=== PATIENT | female | born 1930 | race Caucasian/White ===

== ENCOUNTER 2018-07-10 11:48 | Inpatient (IN) | payer OTHER ==
--- NOTE | 2018-07-10 13:14 | ER ---
Nurse's Notes [facility] Name: Christel Marmolejo Age: 87 yrs Sex: Female : 1930 Arrival Date: 07/10/2018 Time: 11:52 Bed 23 Private MD: Cali Yadav R Diagnosis: Fall due to bumping against object;Displaced fracture of base of neck of left femur Presentation: 07/10 11:56 Presenting complaint: Patient states: Fell from standing at 1100 this AM onto ceramic aj tile. Patient reports left elbow, left hip, and left knee pain. Care prior to arrival: None. Mechanism of Injury: Fall from standing position. Trauma event details: Injury occurred in the [facility], Injury occurred: at home. Injury occurred: July 10, 2018 Injury occurred at: 11:00. 11:56 Acuity: CARRI 3 aj 11:56 Method Of Arrival: Wheelchair aj 12:00 Transition of care: patient was not received from another setting of care. Onset of aj symptoms was July 10, 2018. Risk Assessment: Do you want to hurt yourself or someone else? Patient reports no desire to harm self or others. Initial Sepsis Screen: Does the patient meet any 2 criteria? No. Patient's initial sepsis screen is negative. Does the patient have a suspected source of infection? No. Patient's initial sepsis screen is negative. Trauma Activation: Alert Physician: ED Physician; Name: ; Notified At: ; Arrived At: Physician: General Surgeon; Name: ; Notified At: ; Arrived At: Physician: Radiology; Name: ; Notified At: ; Arrived At: Physician: Respiratory; Name: ; Notified At: ; Arrived At: Physician: Lab; Name: ; Notified At: ; Arrived At: Historical: - Allergies: 12:00 NKA; aj - Home Meds: 12:00 aspirin 81 mg Oral TbEC 1 tab once daily [Active]; Entresto 24-26 mg Oral tab twice a aj day [Active]; furosemide 40 mg Oral tab 1 tab once daily [Active]; potassium chloride 10 mEq Oral cpER 1 cap once daily [Active]; - PMHx: 12:00 breast cancer; HEART FAILURE; Hepatitis; Pacemaker; Parkinsons; aj - PSHx: 12:00 Tonsillectomy; Mastectomy, Right; Appendectomy; mitral valve repair; pacemaker; aj defibrillator; - Immunization history: Last tetanus immunization: unknown. - Social history:: Smoking status: Patient/guardian denies using tobacco. - Ebola Screening: : Patient negative for fever greater than or equal to 101.5 degrees Fahrenheit, and additional compatible Ebola Virus Disease symptoms Patient denies exposure to infectious person Patient denies travel to an Ebola-affected area in the 21 days before illness onset No symptoms or risks identified at this time. Screenin:36 Abuse screen: Denies threats or abuse. Denies injuries from another. Nutritional ss screening: No deficits noted. Tuberculosis screening: Never had TB. Fall Risk None identified. Primary Survey: 11:56 Breathing/Chest: Respiratory pattern: regular, no respiratory pattern noted, aj Respiratory effort: spontaneous, unlabored, Breath sounds: clear, Chest inspection: symmetrical rise and fall of the chest. Circulation: Skin color: pink, Skin temperature: warm, dry. Disability Alert. Assessment: 11:56 General: Appears in no apparent distress. comfortable, Behavior is calm, cooperative, aj appropriate for age. Pain: Complains of pain in left hip, left elbow and left knee. Neuro: Level of Consciousness is awake, alert, obeys commands, Oriented to person, place, time, situation, Appropriate for age. Respiratory: Airway is patent Respiratory effort is even, unlabored, Respiratory pattern is regular, symmetrical. Derm: Skin is intact, is healthy with good turgor, Skin is pink, warm \T\ dry. normal. Musculoskeletal: Reports pain in left hip, left elbow and left knee. 13:00 Reassessment: Patient and/or family updated on plan of care and expected duration. Pain tl3 level reassessed. Patient is alert, oriented x 3, equal unlabored respirations, skin warm/dry/pink. xray at bedside. 14:39 Reassessment: Patient appears in no apparent distress at this time. No changes from tl3 previously documented assessment. Patient and/or family updated on plan of care and expected duration. Pain level reassessed. Patient is alert, oriented x 3, equal unlabored respirations, skin warm/dry/pink. pt does not want pain medicine at this time. 14:39 Reassessment: ECHO being done at bedside. tl3 16:28 Reassessment: Patient appears in no apparent distress at this time. No changes from tl3 previously documented assessment. Patient and/or family updated on plan of care and expected duration. Pain level reassessed. Patient is alert, oriented x 3, equal unlabored respirations, skin warm/dry/pink. being transferred to bed 202. Vital Signs: 11:56 BP 136 / 78; Pulse 87; Resp 20; Temp 97.3; Pulse Ox 99% on R/A; Weight 48.53 kg; Height aj 5 ft. 2 in. (157.48 cm); 13:00 BP 155 / 71; Pulse 77; Resp 18; Pulse Ox 100% on R/A; tl3 16:28 BP 126 / 64; Pulse 86; Resp 18; Pulse Ox 97% on R/A; tl3 11:56 Body Mass Index 19.57 (48.53 kg, 157.48 cm) aj Irene Coma Score: 11:56 Eye Response: spontaneous(4). Verbal Response: oriented(5). Motor Response: obeys aj commands(6). Total: 15. Trauma Score (Adult): 11:56 Eye Response: spontaneous(1); Verbal Response: oriented(1); Motor Response: obeys aj commands(2); Systolic BP: > 89 mm Hg(4); Respiratory Rate: 10 to 29 per min(4); Redkey Score: 15; Trauma Score: 12 ED Course: 11:52 Patient arrived in ED. mr 11:52 Cali Yadav MD is Private Physician. mr 11:57 Triage completed. aj 12:00 Arm band placed on left wrist. Patient placed in an exam room. aj 12:03 Ric Duarte MD is Attending Physician. devendra 12:36 Tamia Norris, DAKOTAH is Primary Nurse. ss 12:36 Patient has correct armband on for positive identification. Bed in low position. Call ss light in reach. Pulse ox on. NIBP on. 12:36 Patient maintains SpO2 saturation greater than 95% on room air. ss 13:00 No provider procedures requiring assistance completed. tl3 13:12 Cali Yadav MD is Hospitalizing Provider. devendra 13:13 Ortho called and connected Dr. Rojas with ED doc for patient consulation. eb 13:17 Private physician called and connected Dr. Yadav with ED doc for patient consulation. eb 13:21 X-ray completed. Portable x-ray completed in exam room. Patient tolerated procedure ml well. 13:22 XRAY Hip LEFT 2 view In Process Unspecified. EDMS 13:22 XRAY Knee LEFT 3 view In Process Unspecified. EDMS 13:22 XRAY Elbow LEFT 3 view In Process Unspecified. EDMS 13:43 EKG done, by agriculture laboratory technician. reviewed by Ric Duarte MD. sm3 14:00 Rushing cath inserted, using sterile technique, 16 Fr., by oh, balloon inflated, to tl3 gravity drainage, urine specimen collected. returned clear yellow urine. Patient tolerated well. 14:38 Inserted saline lock: 22 gauge in left forearm, using aseptic technique. Blood tl3 collected. 14:41 Urine Dipstick--Ancillary (enter results) Sent. tl3 14:41 Echo w/ Doppler Sent. tl3 14:42 XRAY Chest (1 view) Sent. tl3 16:28 Patient admitted, IV remains in place. tl3 Administered Medications: 14:41 Drug: NS 0.9% 1000 ml Route: IV; Rate: 125 ml/hr; Site: left forearm; Delivery: Primary tl3 tubing; 16:34 Follow up: IV Status: Completed infusion; IV Intake: 500ml tl3 Intake: 16:34 IV: 500ml; Total: 500ml. tl3 Outcome: 13:13 Decision to Hospitalize by Provider. [facility] 16:28 Admitted to Med/surg accompanied by [facility], via stretcher, with chart, Report called to tl3 DAKOTAH Díaz 16:28 Condition: stable 16:28 Instructed on the need for admit, Demonstrated understanding of instructions. 16:34 Patient left the ED. tl3 Signatures: Dispatcher [employer] Christie Leyva, RN Ric Gonsalves MD MD cha Rivera, Indu mr Gideon, Tamia Dc RN RN ss Lowrey, Tammy, RN RN tl3 Adriana Dixon Shakira [facility]
--- NOTE | 2018-07-10 13:14 | EDPHYS ---
Physician Documentation [facility] Name: Christel Marmolejo Age: 87 yrs Sex: Female : 1930 Arrival Date: 07/10/2018 Time: 11:52 Bed 23 Private MD: Cali Yadav R ED Physician Ric Duarte HPI: 07/10 13:09 This 87 yrs old Female presents to ER via Wheelchair with complaints of Fall devendra Injury. 13:09 Details of fall: The patient fell from an upright position, while walking. Onset: The devendra symptoms/episode began/occurred just prior to arrival. Associated injuries: The patient sustained left arm, decreased range of motion, painful injury, left hip, left inner thigh and left upper thigh, decreased range of motion, painful injury. Historical: - Allergies: 12:00 NKA; aj - Home Meds: 12:00 aspirin 81 mg Oral TbEC 1 tab once daily [Active]; Entresto 24-26 mg Oral tab twice a aj day [Active]; furosemide 40 mg Oral tab 1 tab once daily [Active]; potassium chloride 10 mEq Oral cpER 1 cap once daily [Active]; - PMHx: 12:00 breast cancer; HEART FAILURE; Hepatitis; Pacemaker; Parkinsons; aj - PSHx: 12:00 Tonsillectomy; Mastectomy, Right; Appendectomy; mitral valve repair; pacemaker; aj defibrillator; - Immunization history: Last tetanus immunization: unknown. - Social history:: Smoking status: Patient/guardian denies using tobacco. - Ebola Screening: : Patient negative for fever greater than or equal to 101.5 degrees Fahrenheit, and additional compatible Ebola Virus Disease symptoms Patient denies exposure to infectious person Patient denies travel to an Ebola-affected area in the 21 days before illness onset No symptoms or risks identified at this time. ROS: 13:09 Constitutional: Negative for fever, chills, and weight loss, Eyes: Negative for injury, devendra pain, redness, and discharge, ENT: Negative for injury, pain, and discharge, Neck: Negative for injury, pain, and swelling, Cardiovascular: Negative for chest pain, palpitations, and edema, Respiratory: Negative for shortness of breath, cough, wheezing, and pleuritic chest pain, Abdomen/GI: Negative for abdominal pain, nausea, vomiting, diarrhea, and constipation, Back: Negative for injury and pain, : Negative for injury, bleeding, discharge, and swelling, Skin: Negative for injury, rash, and discoloration, Neuro: Negative for headache, weakness, numbness, tingling, and seizure, Psych: Negative for depression, anxiety, suicide ideation, homicidal ideation, and hallucinations, Allergy/Immunology: Negative for hives, rash, and allergies, Endocrine: Negative for neck swelling, polydipsia, polyuria, polyphagia, and marked weight changes, Hematologic/Lymphatic: Negative for swollen nodes, abnormal bleeding, and unusual bruising. 13:09 MS/extremity: Positive for decreased range of motion, pain, swelling, tenderness, of the left arm and left leg. Exam: 13:09 Constitutional: This is a well developed, well nourished patient who is awake, alert, devendra and in no acute distress. Head/Face: Normocephalic, atraumatic. Eyes: Pupils equal round and reactive to light, extra-ocular motions intact. Lids and lashes normal. Conjunctiva and sclera are non-icteric and not injected. Cornea within normal limits. Periorbital areas with no swelling, redness, or edema. ENT: Nares patent. No nasal discharge, no septal abnormalities noted. Tympanic membranes are normal and external auditory canals are clear. Oropharynx with no redness, swelling, or masses, exudates, or evidence of obstruction, uvula midline. Mucous membranes moist. Neck: Trachea midline, no thyromegaly or masses palpated, and no cervical lymphadenopathy. Supple, full range of motion without nuchal rigidity, or vertebral point tenderness. No Meningismus. Chest/axilla: Normal chest wall appearance and motion. Nontender with no deformity. No lesions are appreciated. Cardiovascular: Regular rate and rhythm with a normal S1 and S2. No gallops, murmurs, or rubs. Normal PMI, no JVD. No pulse deficits. Respiratory: Lungs have equal breath sounds bilaterally, clear to auscultation and percussion. No rales, rhonchi or wheezes noted. No increased work of breathing, no retractions or nasal flaring. Abdomen/GI: Soft, non-tender, with normal bowel sounds. No distension or tympany. No guarding or rebound. No evidence of tenderness throughout. Back: No spinal tenderness. No costovertebral tenderness. Full range of motion. Female : Normal external genitalia. Skin: Warm, dry with normal turgor. Normal color with no rashes, no lesions, and no evidence of cellulitis. Neuro: Awake and alert, GCS 15, oriented to person, place, time, and situation. Cranial nerves II-XII grossly intact. Motor strength 5/5 in all extremities. Sensory grossly intact. Cerebellar exam normal. Normal gait. Psych: Awake, alert, with orientation to person, place and time. Behavior, mood, and affect are within normal limits. 13:09 Musculoskeletal/extremity: ROM: limited active range of motion, limited passive range of motion, Circulation is intact in all extremities. Sensation intact. Compartment Syndrome exam of affected extremity: is normal. DVT Exam: no swelling, negative Homans' sign noted on exam, no appreciated bluish discoloration, no erythema, no increased warmth, pain, tenderness. Vital Signs: 11:56 BP 136 / 78; Pulse 87; Resp 20; Temp 97.3; Pulse Ox 99% on R/A; Weight 48.53 kg; Height aj 5 ft. 2 in. (157.48 cm); 13:00 BP 155 / 71; Pulse 77; Resp 18; Pulse Ox 100% on R/A; tl3 16:28 BP 126 / 64; Pulse 86; Resp 18; Pulse Ox 97% on R/A; tl3 11:56 Body Mass Index 19.57 (48.53 kg, 157.48 cm) Pep Coma Score: 11:56 Eye Response: spontaneous(4). Verbal Response: oriented(5). Motor Response: obeys aj commands(6). Total: 15. Trauma Score (Adult): 11:56 Eye Response: spontaneous(1); Verbal Response: oriented(1); Motor Response: obeys aj commands(2); Systolic BP: > 89 mm Hg(4); Respiratory Rate: 10 to 29 per min(4); Pep Score: 15; Trauma Score: 12 MDM: 12:03 Patient medically screened. [facility] 13:11 Data reviewed: vital signs, nurses notes, lab test result(s), EKG, radiologic studies, devendra plain films. 07/10 13:09 Order name: Basic Metabolic Panel; Complete Time: 16:15 [facility] 07/10 13:09 Order name: CBC with Diff; Complete Time: 16:15 [facility] 07/10 13:09 Order name: LFT's; Complete Time: 16:15 [facility] 07/10 13:09 Order name: Magnesium; Complete Time: 16:15 [facility] 07/10 13:09 Order name: NT PRO-BNP; Complete Time: 16:15 [facility] 07/10 13:09 Order name: PT-INR; Complete Time: 16:15 [facility] 07/10 13:09 Order name: Troponin (emerg Dept Use Only); Complete Time: 16:15 [facility] 07/10 13:09 Order name: Lipase; Complete Time: 16:15 [facility] 07/10 13:09 Order name: Urine Culture [facility] 07/10 13:22 Order name: Basic Metabolic Panel [facility] 07/10 13:22 Order name: Basic Metabolic Panel [facility] 07/10 13:23 Order name: CBC with Automated Diff [facility] 07/10 13:23 Order name: CBC with Automated Diff [facility] 07/10 14:36 Order name: Urine Dipstick--Ancillary (enter results) 07/10 12:10 Order name: XRAY Hip LEFT 2 view; Complete Time: 14:08 07/10 12:10 Order name: XRAY Knee LEFT 3 view; Complete Time: 14:08 07/10 12:10 Order name: XRAY Elbow LEFT 3 view; Complete Time: 14:08 07/10 13:09 Order name: XRAY Chest (1 view) [facility] 07/10 13:09 Order name: EKG; Complete Time: 13:10 [facility] 07/10 13:09 Order name: Pelvis XRAY [facility] 07/10 13:22 Order name: CONS Physician Consult [facility] 07/10 13:22 Order name: CONS Physician Consult; Complete Time: 14:41 [facility] 07/10 13:22 Order name: NPO [facility] 07/10 13:51 Order name: RAD; Complete Time: 14:08 [facility] 07/10 14:06 Order name: RAD; Complete Time: 14:08 [facility] 07/10 14:09 Order name: Echo w/ Doppler [facility] 07/10 14:57 Order name: Urine Dipstick-Ancillary; Complete Time: 16:15 [facility] 07/10 13:09 Order name: Cardiac monitoring; Complete Time: 14:42 [facility] 07/10 13:09 Order name: EKG - Nurse/Tech; Complete Time: 14:42 [facility] 07/10 13:09 Order name: IV Saline Lock; Complete Time: 14:42 [facility] 07/10 13:09 Order name: Labs collected and sent; Complete Time: 14:42 [facility] 07/10 13:09 Order name: O2 Per Protocol; Complete Time: 14:42 [facility] 07/10 13:09 Order name: O2 Sat Monitoring; Complete Time: 14:43 [facility] 07/10 13:09 Order name: Urine Dipstick-Ancillary (obtain specimen); Complete Time: 14:42 [facility] 07/10 13:09 Order name: Rushing; Complete Time: 14:42 [facility] Administered Medications: 14:41 Drug: NS 0.9% 1000 ml Route: IV; Rate: 125 ml/hr; Site: left forearm; Delivery: Primary tl3 tubing; 16:34 Follow up: IV Status: Completed infusion; IV Intake: 500ml tl3 Disposition: 07/10/18 13:13 Hospitalization ordered by Cali Yadav for Inpatient Admission. Preliminary diagnosis are Fall due to bumping against object, Displaced fracture of base of neck of left femur. - Bed requested for Telemetry/MedSurg (Inpatient). - Status is Inpatient Admission. tl3 - Condition is Stable. - Problem is new. - Symptoms have improved. UTI on Admission? No Signatures: Dispatcher [employer] EDMS Christie Chaudhry RN Ric Gonsalves MD MD cha Lowrey, Tammy, RN RN tl3 Adriana Dixon Corrections: (The following items were deleted from the chart) 14:25 13:13 Hospitalization Ordered by Cali Yadav MD for Inpatient Admission. Preliminary eb diagnosis is Fall due to bumping against object; Displaced fracture of base of neck of left femur. Bed requested for Telemetry/MedSurg (Inpatient). Status is Inpatient Admission. Condition is Stable. Problem is new. Symptoms have improved. UTI on Admission? No. devendra 14:26 14:25 07/10/2018 13:13 Hospitalization Ordered by Cali Yadav MD for Inpatient eb Admission. Preliminary diagnosis is Fall due to bumping against object; Displaced fracture of base of neck of left femur. Bed requested for Telemetry/MedSurg (Inpatient). Status is Inpatient Admission. Condition is Stable. Problem is new. Symptoms have improved. UTI on Admission? No. eb 16:34 14:26 07/10/2018 13:13 Hospitalization Ordered by Cali Yadav MD for Inpatient tl3 Admission. Preliminary diagnosis is Fall due to bumping against object; Displaced fracture of base of neck of left femur. Bed requested for Telemetry/MedSurg (Inpatient). Status is Inpatient Admission. Condition is Stable. Problem is new. Symptoms have improved. UTI on Admission? No. eb
[2018-07-10] MEDS ORDERED: ACETAMINOPHEN 500 MG TAB PO PRN (13:18)
[2018-07-10] MEDS ORDERED: ONDANSETRON 4 MG/2 ML VIAL IV PRN (13:18)
--- NOTE | 2018-07-10 13:29 | RAD REPORT ---
EXAM DESCRIPTION: RAD - Elbow Left 3 View - 07/10/2018 1:21 pm CLINICAL HISTORY: Left elbow pain status post fall FINDINGS: The bones are osteoporotic. No fracture or dislocation is seen. However, a joint effusion is present. In the setting of trauma this usually indicates an occult fract ure. The radial head is the most common site
--- NOTE | 2018-07-10 13:40 | RAD REPORT ---
EXAM DESCRIPTION: RAD - Knee Left 3 View - 07/10/2018 1:21 pm CLINICAL HISTORY: Left knee pain status post injury FINDINGS: No fracture or dislocation is seen. The bones are osteoporotic
[2018-07-10] MEDS ORDERED: FENTANYL CITR 100 MCG/2 ML ONE (13:43)
--- NOTE | 2018-07-10 13:51 | RAD REPORT ---
EXAM DESCRIPTION: RAD - Hip Left 2 View - 07/10/2018 1:21 pm CLINICAL HISTORY: Left hip pain status post fall FINDINGS: Subcapital impacted mildly to moderately displaced fracture involves the proximal left fem ur. No dislocation seen. Bones are osteoporotic
--- NOTE | 2018-07-10 13:52 | RAD REPORT ---
EXAM DESCRIPTION: RAD - Pelvis - 07/10/2018 1:47 pm CLINICAL HISTORY: Pelvic pain status post fall FINDINGS: Subcapital impacted mildly to moderately displaced fracture involves the proximal left fem ur. No dislocation seen. Bones are osteoporotic
[2018-07-10] MEDS ORDERED: NA CHLORIDE 0.9% 1,000 ML IV SCH (14:00)
--- NOTE | 2018-07-10 14:04 | RAD REPORT ---
EXAM DESCRIPTION: Fabio Single View07/10/2018 1:47 pm CLINICAL HISTORY: Hypertension COMPARISON: 2010 FINDINGS: The lungs appear clear of acute infiltrate. Chronic appearing pleural and pulmonary paren chymal opacities noted. The heart is mildly enlarged. Pacemaker leads are in place. Post surgical changes involve the chest IMPRESSION: No acute abnormalities displayed
[2018-07-10 14:54] LABS: Absolute Lymphocytes (CBC) 0.4 K/uL (0.7-4.9); Absolute Monocytes 0.2 K/uL (0.1-1.3); Absolute Neutrophil 7.2 K/uL (1.8-8.0); Basophils % 0.3 % (0-1.3); Hematocrit 33.4 % (36.0-45.0); Lymphocytes % 4.5 % (15.3-44.8); MCH 28.9 pg (27.0-35.0); MCV 85.1 fL (80-100); MPV 9.2 fL (7.6-11.3); Monocytes % 2.7 % (3.3-12.3); RBC Red Blood Cell Count 3.93 M/uL (3.86-4.86)
[2018-07-10 14:56] LABS: Urine Specific Gravity 1.015 (1.005-1.030)
[2018-07-10 14:57] LABS: Protime INR 0.97
[2018-07-10 14:57] LABS: Urine Blood TRACE (NEG); Urine Glucose NEGATIVE (NEG); Urine Protein NEGATIVE (NEG); Urine pH 5.5 (5.0-7.0)
[2018-07-10 15:14] LABS: Albumin 3.6 g/dL (3.4-5.0); Bilirubin Direct 0.1 mg/dL (0-0.2); Bilirubin Total 0.4 mg/dL (0.2-1.0); Magnesium 2.4 mg/dL (1.8-2.4); Protein, Total 6.8 g/dL (6.4-8.2); Troponin (Emerg Dept Use Only) 0.03 ng/mL (0.0-0.045)
--- NOTE | 2018-07-10 18:46 | EKG ---
Test Date: 2018-07-10 Test Time: 13:34:01 Check Out Clerk: TYSHAWN MEASUREMENT RESULTS: Intervals: Rate: 88 WY: 202 QRSD: 92 QT: 400 QTc: 484 [place]: P: 87 W[place]: 202 QRS: -39 T: 85 INTERPRETIVE STATEMENTS: Electronic ventricular pacemaker Compared to ECG 04/06/2017 07:02:06 No significant changes Electronically Signed On 07-10-18 18:44:47 CUSTOMER SOLUTIONS COORDINATOR by Jordi López
[2018-07-11] MEDS: MORPHINE 2 MG/ML SYR IV PRN ×2 (00:30→04:07)
[2018-07-11 05:32] LABS: Absolute Lymphocytes (CBC) 0.3 K/uL (0.7-4.9); Absolute Monocytes 0.3 K/uL (0.1-1.3); Absolute Neutrophil 5.5 K/uL (1.8-8.0); Basophils % 0.5 % (0-1.3); Eosinophils % 1.5 % (0-4.4); Hematocrit 29.6 % (36.0-45.0); Lymphocytes % 5.3 % (15.3-44.8); MCH 29.1 pg (27.0-35.0); MCV 84.9 fL (80-100); MPV 8.9 fL (7.6-11.3); Monocytes % 4.6 % (3.3-12.3); RBC Red Blood Cell Count 3.49 M/uL (3.86-4.86)
[2018-07-11 05:41] LABS: Potassium 4.1 mmol/L (3.5-5.1)
--- NOTE | 2018-07-11 07:28 | CON ---
Date of Consultation: 07/10/2018 History Of Present Illness: This is my first time seeing this patient to my knowledge, although she does seem a little familiar to me. She is an 87-year-old female who unfortunately today fell onto a tile floor injuring her left hip as well as her left elbow. Physical Examination: On physical examination, she complains of pain with manipulation of her left lower extremity in the r egion of the hip. She may have some very mild knee pain, however not that significant. She is also complaining of some left elbow pain. However, there is no obvious effusion of the elbow or bruising of the elbow. Range of motion of the elbow does cause some mild pain. X-rays were reviewed which re vealed perhaps some slight swelling of the elbow. There is a possibility of an occult fracture of e radial head. However, this is definitely not , although present, is not high. She also has a left impacted slightly varus femoral neck fracture. Assessment And Plan: Assessment at this time is an 87-year-old female, now with left elbow pain, pos sible nondisplaced radial head fracture which is not obvious, as well as a left femoral neck fracture . Risks, benefits, and alternatives to different methods of treating this had been discussed with [facility] patient and the family. They state that they understand things as presented. At this time, she wi ll be admitted in the care of Medicine, most likely with a cardiac consult. After cardiac clearance is performed, we will move forward with a left bipolar hemiarthroplasty. All of her questions as wel l as those of her family had otherwise been answered. SANTA Voice ID: [id number] Report ID: [id number]
[2018-07-11] MEDS ORDERED: DOBUTAMINE 250 MG/250 ML BAG IV PRN ×2 (07:35→13:41)
[2018-07-11] MEDS ORDERED: EPINEPHrine 4 MG in NA CHLORIDE 0.9% 250 ML IV PRN (07:37)
[2018-07-11] MEDS ORDERED: DOPAMINE/D5W 400 MG/250 ML BAG IV SCH (07:45)
[2018-07-11] MEDS ORDERED: TRANEXAMIC ACID 1,000 MG in NA CHLORIDE 0.9% 50 ML IV ONE (08:00)
[2018-07-11] MEDS ORDERED: PROPOFOL 200 MG/20 ML VIAL IV ONE (08:56)
[2018-07-11] MEDS ORDERED: ROCURONIUM 50 MG/5 ML VIAL IV ONE (08:56)
[2018-07-11] MEDS ORDERED: Phenylephrine HCl 10 MG/ML 1 ML VIAL ONE (08:58)
[2018-07-11] MEDS ORDERED: MIDAZOLAM HCL 2 MG/2 ML INJ ONE (09:02)
[2018-07-11] MEDS ORDERED: CEFAZOLIN/SWI 1gm 2 GM/20 ML SYR ONE (09:12)
[2018-07-11] MEDS ORDERED: Ringers Lactate 1,000 ML IV ONE (09:12)
[2018-07-11] MEDS ORDERED: GLYCOPYRROLATE 0.2 MG/ML SYR ONE ×2 (09:54→10:55)
[2018-07-11] MEDS ORDERED: FENTANYL CITR 100 MCG/2 ML ONE (10:10)
[2018-07-11] MEDS ORDERED: ONDANSETRON HCL 40 MG/20 ML VIAL ONE (10:22)
[2018-07-11] MEDS ORDERED: DEXAMETHASONE 10 MG/ML VIAL ONE (10:22)
[2018-07-11] MEDS ORDERED: KETOROLAC 30 MG/ML INJ ONE (10:30)
[2018-07-11] MEDS ORDERED: Caclcium Chloride 10% INJ SYR IV ONE (10:31)
--- NOTE | 2018-07-11 11:07 | P.BOP ---
Preoperative diagnosis: left femoral neck fracture Postoperative diagnosis: same Primary procedure: left hip bipolar hemiarthoplasty Estimated blood loss: 50ccs Anesthesia: General Complications: None Transferred to: Recovery Room Condition: Good
[2018-07-11] MEDS ORDERED: NA CHLORIDE 0.9% 1,000 ML ONE (11:45)
[2018-07-11] MEDS: CEFAZOLIN/SWI 1gm 1 GM/10 ML SYR IV SCH (16:55)
[2018-07-11] MEDS ORDERED: NA CHLORIDE 0.9% 1,000 ML IV SCH (17:00)
[2018-07-11] MEDS: NA CHLORIDE 0.9% 1,000 ML IV SCH (18:00)
[2018-07-11] MEDS ORDERED: NA CHLORIDE 0.9% 200 ML IV SCH (18:00)
--- NOTE | 2018-07-11 19:16 | HP ---
Date of Admission: 07/10/2018 Chief Complaint: Fractured hip. History Of Present Illness: An 87-year-old female who fell down at home, was brought to the emergenc y room. The patient had multiple x-rays. She was found to have a fracture of the hip and the patien t is admitted for surgical intervention. The patient denied any chest pain or other systemic symptom s prior to the fall. No history of fever, chills, or rigors. The patient did not have any other injuries related to the fall. Past Medical History: Positive for hepatitis C, congestive heart failure, history of breast cancer, and Parkinson disease. Past Surgical History: Positive for pacemaker insertion, mitral valve repair, mastectomy, and tonsil lectomy. Home Medicines: Aspirin, Entresto, furosemide, and potassium. Review of Systems: No chest pain or shortness of breath. Physical Examination: General: Revealed an 87-year-old female, alert for her age. HEENT: No evidence of head injury. Neck: Supple. JVD negative. Chest: Few scattered wheezes. Heart: Occasional irregularity noted. Abdomen: Soft. Extremities: Tenderness of the hip on the left side noted. Laboratory: X-ray pelvis and hip shows a left hip fracture. Assessment: 1.Fractured left hip. 2.Known congestive heart failure, compensated. 3.Permanent pacemaker. 4.Chronic hepatitis C. 5.History of breast cancer and mastectomy. Plan: Surgical consultation, cardiology consultation for preop clearance. NICOLASA/JEFFREY Voice ID: [id number]
--- NOTE | 2018-07-11 19:49 | OP ---
Date of Procedure: 07/11/2018 Surgeon: Christiano Rojas MD Preoperative Diagnosis: Left hip femoral neck fracture. Postoperative Diagnosis: Left hip femoral neck fracture. Procedure: Left hip bipolar hemiarthroplasty using Biomet fracture system. Estimated Blood Loss: 100 cc. Complications: There were no complications. Indication For Operation: Ms. Marmolejo is an 87-year-old female, who has multiple medical problems inclu ding cardiac issues, who unfortunately fell injuring her left elbow as well as her left hip. Her elb ow was examined. She does have some mild pain as well as small abrasion. X-rays demonstrate some ef fusion of the elbow, but no obvious fracture. Left hip has pain with any movement or manipulation an d x-rays revealed a femoral neck fracture on the left. All risks, benefits, and alternatives of diff erent methods of treatment have been discussed with the patient and the family. They state they unde rstand everything as presented at this time and opt for operative intervention understanding she tommy ot walk on right away because of cardiac issues and has a better chance of avoiding reoperation. Oth erwise, the risks were again discussed. They understand things presented and agreed to proceed. Description Of Procedure: The patient was taken to the operating room and placed in supine position. General anesthesia was easily obtained by Anesthesia staff. She was then rolled right side down wi th an axillary roll. She was then properly positioned using hip positioners. All of her bony promin ences were checked. Her left lower extremity was then prepped and draped in usual sterile fashion fo r arthroplasty. Following this, a standard posterior lateral incision was taken down carefully throu gh skin and soft tissues. Meticulous hemostasis being maintained using Bovie electrocautery. This l elinor to the fascia. A small stab wound was made in the fascia and to assure proper placement of the incision, the gluteal tendon was palpated. The fascia was then divided up to near the tip of the gre ater trochanter and was then curved gently backward in line with the gluteus олег. These muscle f ibers were then split using finger. The sciatic nerve was palpated and protected while some bursal t issue was removed. This allowed us for removal of the external rotators and capsule, which were take n down and tagged for later repair. The hip was then dislocated and the femoral neck was cut. The b all was removed and sized to a size 47 using ring gauges. Any debris within the acetabulum was clear ed and was irrigated. Attention then turned to the femur. The weigh box tender was then used as well as s equential cylindrical reaming, which go up to near a size 15, size 14 can pass. The femur was then s equentially broached to a size 13. The size 14 possibly could have been passed. However, given the patient's degree of osteoporosis and her relative activity level, decision was made to not attempt to force any larger broach. The canal was then irrigated with multiple liters of sterile saline until this ran clear. The bone plug was placed to appropriate depth and a size 11 fracture stem was then p laced using third generation cementation technique. Any unsupported cement was removed was then tria led with a standard. The standard goes easily and she can come to full extension. She was stable fu ll flexion, full adduction, and internal rotation to at least 30-45 degrees. This was selected to be the best fit as there was no lateral or inferior shuck. The final ball was then placed. It was the n relocated after inspecting the acetabulum. The external rotators and capsule were then repaired ba ck to the femur at the trochanter using bone tunnels. It was again irrigated and the fascia closed i n a watertight fashion using heavy Vicryl sutures, again irrigated, and the skin was closed using 2-0 Vicryl sutures, followed by suhail. She was then placed in Aquacel dressing, abduction pillow, nacho kened, and taken to recovery room. SANTA Voice ID: [id number] Report ID: [id number]
[2018-07-12] MEDS: CEFAZOLIN/SWI 1gm 1 GM/10 ML SYR IV SCH ×3 (00:17→18:05)
[2018-07-12] MEDS: NA CHLORIDE 0.9% 1,000 ML IV SCH ×3 (00:17→09:39)
[2018-07-12 06:03] LABS: Absolute Lymphocytes (CBC) 0.2 K/uL (0.7-4.9); Absolute Monocytes 0.3 K/uL (0.1-1.3); Basophils % 0.1 % (0-1.3); Hematocrit 28.7 % (36.0-45.0); Lymphocytes % 2.6 % (15.3-44.8); MCH 28.7 pg (27.0-35.0); MCV 86.3 fL (80-100); MPV 10.1 fL (7.6-11.3); Monocytes % 4.4 % (3.3-12.3); RBC Red Blood Cell Count 3.32 M/uL (3.86-4.86)
[2018-07-12 06:21] LABS: Potassium 4.4 mmol/L (3.5-5.1)
[2018-07-12] MEDS ORDERED: ACETAMINOPHEN 325 MG TABLET PO PRN (12:04)
[2018-07-12] MEDS ORDERED: BISACODYL E.C. 5 MG TAB PO PRN (12:04)
[2018-07-12] MEDS: ENOXAPARIN 30 MG/0.3 ML SQ SCH (18:06)
--- NOTE | 2018-07-12 22:08 | CON ---
Date of Consultation: 07/10/2018 Reason For Consultation: Cardiac clearance for left hip fracture. History Of Present Illness: Ms. Marmolejo is 87, has a history of mitral valve repair, AICD, pacemaker, p arkinsonism, and hepatitis. She has a history of chronic systolic congestive heart failure. Last ec hocardiogram in 2013 showed an ejection fraction of 19%. The patient has done amazingly well conside ring her ejection fraction with very few episodes of CHF. She does take aspirin, Lasix, Entresto, an d potassium for that. She is asymptomatic cardiac-bess. Recent check of her defibrillators and pace maker were okay. Allergies: NONE. Review of Systems: Negative. Social History: Negative. Family History: Negative. Medications: Medications at home were stated earlier. Physical Examination: General: Ms. Marmolejo was in no acute distress. She was in a paced rhythm. HEENT: Negative. Neck: Supple with no bruit. Chest: Clear. Cardiac: Exam revealed a paced rhythm. No murmurs, gallops, or rubs. Abdomen: Benign. Extremities: Revealed no clubbing, cyanosis, or edema. Diagnostic Data: All normal. Echocardiogram is pending. Impression And Plan: Ms. Marmolejo is a do not resuscitate, but she is 87. She is very alert and oriente d. Has done very well from a cardiac standpoint as far as symptoms are concerned. We will see what her echocardiogram shows. Her last ejection fraction was in 2013 and that was 19%. She is on Entres to, Lasix, aspirin, and potassium. Nevertheless, I think ICU monitoring after surgery is recommended . She is at moderate risk as far as we are concerned unless her echocardiogram shows any improvement . Ms. Marmolejo has a mitral valve repair, AICD, and a pacemaker as well as parkinsonism and hepatitis. She is on aspirin as far as anticoagulation and that certainly can be held whenever as needed. We wi ll continue to follow Ms. Marmolejo. CHASE/JEFFREY Voice ID: [id number] Report ID: [id number]
--- NOTE | 2018-07-12 22:39 | PN ---
The patient is doing much better today. Her urine output is increased. She is getting geophysical support specialist apy. In view of this, the patient is started on less IV fluids and she will be transferred to floor for further management and followup. NICOLASA/JEFFREY Voice ID: [id number] Report ID: [id number]
--- NOTE | 2018-07-12 22:48 | PN ---
Date of Progress Note: 07/11/2018 Ms. Marmolejo was admitted by Dr. Yadav on 07/10/2018 with a left hip fracture. She was cleared for surge ry. She had a history of CHF with an EF of 19%; however, an echocardiogram that was done on 07/10/20 18 in the afternoon showed a normal ejection fraction, which is a marked improvement from an ejection fraction of 19% in 2014. She underwent hip surgery, has done very well. She is in the ICU postop f or monitoring. Has not had any CHF or atrial fibrillation. We will continue her present regimen. W e will be available as needed. CHASE/JEFFREY Voice ID: [id number] Report ID: [id number]
--- NOTE | 2018-07-12 23:23 | PN ---
Date of Progress Note: 07/12/2018 The patient now postop day #1 after bipolar hemiarthroplasty on the left. There was some question of whether or not she had a fracture of her left elbow. However, now she is using her elbow fine. The re does not appear to be significant problem with it. With regard to her left hip, her dressing is c lean, dry, and intact. She is neurovascularly intact. She moves her foot easily. She does not cite any pain. She has been walking with physical therapy. Laboratory Data: White blood cell count was 7.5, hemoglobin was 9.5. At this time, I believe she is doing well with regard to her hip. Anticoagulation is to be considere d by the hospitalist. She does have multiple other medical problems, but usually with the use of Chad enox or some other anticoagulant for 3 weeks. Kennard to be removed in 2 weeks and continue hip prec autions. /JEFFREY Voice ID: [id number] Report ID: [id number]
[2018-07-13] MEDS: NA CHLORIDE 0.9% 1,000 ML IV SCH (04:24)
--- NOTE | 2018-07-13 07:22 | ECHO ---
HEIGHT: 5 ft 2 in WEIGHT: 117 lb 0 oz DATE OF STUDY: 07/10/[address]: Ric Duarte MD 2-DIMENSIONAL: YES M.MODE: YES DOPPLER: YES COLOR FLOW: YES TDS: NO PORTABLE: NO DEFINITY: NO BUBBLE STUDY: NO DIAGNOSIS: CONGESTIVE HEART FAILURE CARDIAC HISTORY: CATHERIZATION: NO SURGERY: YES PROSTHETIC VALVE: YES PACEMAKER: YES MEASUREMENTS (cm) DIASTOLIC (NORMALS) SYSTOLIC (NORMALS) IVSd 1.0 (0.6-1.2) LA Diam 2.7 (1.9-4.0) LVEF 61% LVIDd 2.8 (3.5-5.7) LVIDs 1.9 (2.0-3.5) %FS 31% LVPWd 1.2 (0.6-1.2) Ao Diam 2.9 (2.0-3.7) 2 DIMENSIONAL ASSESSMENT: RIGHT ATRIUM: NORMAL LEFT ATRIUM: NORMAL RIGHT VENTRICLE: PACEMAKER LEFT VENTRICLE: NORMAL TRICUSPID VALVE: NORMAL MITRAL VALVE: MITRAL ANNULAR CALCIFICATION, NORMAL MVR FUNCTION PULMONIC VALVE: NORMAL AORTIC VALVE: SCLEROSIS PERICARDIAL EFFUSION: NONE AORTIC ROOT: NORMAL LEFT VENTRICULAR WALL MOTION: NORMAL DOPPLER/COLOR FLOW: MILD AORTIC AND TRICUSPID REGURGITATION. COMMENTS: NORMAL LEFT VENTRICULAR SIZE AND EJECTION FRACTION. MILD AORTIC AND TRICUSPID REGURGITATION. AORTIC SCLEROSIS. MITRAL ANNULAR CALCIFICATION. NORMAL MITRAL VALVE REPLACEMENT FUNCTION. AICD IN RIGHT VENTRICLE. TECHNOLOGIST: Donny HESS
[2018-07-13] MEDS: ENOXAPARIN 30 MG/0.3 ML SQ SCH (17:00)
--- NOTE | 2018-07-14 00:51 | PN ---
The patient is ambulating with the help of physical therapy and her vital signs are normal. In view of this, her Rushing and IV fluids have been discontinued. She will be re-evaluated tomorrow. NICOLASA/JEFFREY Voice ID: [id number] Report ID: [id number]
[2018-07-14] MEDS: NA CHLORIDE 0.9% 1,000 ML IV SCH ×2 (01:31→02:00)
[2018-07-14] MEDS: ENOXAPARIN 30 MG/0.3 ML SQ SCH (17:55)
--- NOTE | 2018-07-14 23:46 | PN ---
The patient is very alert. She is doing well with the physical therapy. The patient will be continu ed on the same management. NICOLASA/JEFFREY Voice ID: [id number] Report ID: [id number]
[2018-07-15 06:46] VITALS: BMI 20.5
[2018-07-15] MEDS: ENOXAPARIN 30 MG/0.3 ML SQ SCH (16:16)
--- NOTE | 2018-07-16 02:48 | PN ---
The patient ambulating even better than yesterday. She is fully alert. I spoke to her regarding phy sical therapy, looks like she was told that she is a candidate for inpatient rehab on the fifth floor . The patient very likely will be discharged to rehab floor. NICOLASA/JEFFREY Voice ID: [id number] Report ID: [id number]
[2018-07-16 15:06] VITALS: O2SAT 95
[2018-07-16] MEDS: ENOXAPARIN 30 MG/0.3 ML SQ SCH (16:53)
[2018-07-16 19:27] VITALS: BP 144/65; TEMP 99
== END 2018-07-16 18:12 | disposition home health service (06) | DRG 470 ==
LOC: ER 11:48 → ERHOLD 13:14 → 2ND 16:22 → 3RD-ICU 07-11 12:30 → 2ND 07-12 15:17
PROVIDERS: ADMIT Internal Medicine; ATTEND Internal Medicine
PROC: 0SRS0J9 Replacement of Left Hip Joint, Femoral Surface with Synthetic Substitute, Cemented, Open Approach (ICD-10-PCS; principal; 2018-07-11 09:00)
DX: S72.042A Displaced fracture of base of neck of left femur, initial encounter for closed fracture (principal); I50.22 Chronic systolic (congestive) heart failure; Z66 Do not resuscitate; W01.0XXA Fall on same level from slipping, tripping and stumbling without subsequent striking against object, initial encounter; Y93.01 Activity, walking, marching and hiking; Y92.019 Unspecified place in single-family (private) house as the place of occurrence of the external cause; Z85.3 Personal history of malignant neoplasm of breast; G20 Parkinson's disease; Z90.10 Acquired absence of unspecified breast and nipple; B18.2 Chronic viral hepatitis C; Z95.810 Presence of automatic (implantable) cardiac defibrillator; M81.0 Age-related osteoporosis without current pathological fracture
CPT/HCPCS: 36415; 51702; 71045; 72170; 80048; 80076; 81003; 83690; 83735; 83880; 84484; 85025; 85610; 87086; 87088; 88304; 88305; 88311; 93005; 93306; 96360; 96361; 97163; 99285; J0171; J0690; J1100; J1250; J1265; J1650; J2250; J2270; J2370; J2405; J2704; J3010; J7030